=== PATIENT | male | born 1945 | race Caucasian/White ===

== ENCOUNTER 2024-03-08 23:22 | Inpatient (IN) | payer MEDICARE, OTHER ==
[~2024-03-08] VITALS: Ht 182.9 cm; Wt 73.9 kg
[2024-03-09] MEDS ORDERED: ACETAMINOPHEN 325 MG TABLET PO PRN
[2024-03-09] MEDS: BLOOD SUGAR DIAGNOSTIC 1 EACH STRIP VI ONE
[2024-03-09] MEDS ORDERED: MAGNESIUM HYDROXIDE 30 ML LIQUID UDC PO PRN
[2024-03-09] MEDS ORDERED: MAG HYDROX/AL HYDROX/SIMETH 30 ML LIQUID UDC PO PRN
[2024-03-09] MEDS ORDERED: METF-440 PO (00:29)
[2024-03-09] MEDS ORDERED: FINA5TAB11 PO (00:34)
[2024-03-09] MEDS ORDERED: ICOS1CAP PO (00:34)
[2024-03-09] MEDS ORDERED: DEXL60CA3 PO (00:34)
[2024-03-09] MEDS ORDERED: TAMS-3 PO (00:34)
[2024-03-09] MEDS ORDERED: QUET50TA PO (00:34)
[2024-03-09] MEDS ORDERED: CELE200C PO (00:34)
[2024-03-09] MEDS ORDERED: PITA2TAB PO (00:35)
[2024-03-09 00:52] VITALS: BP 138/81; TEMP 97.1; O2SAT 96
[2024-03-09 00:53] VITALS: BP 138/81; TEMP 97.1; O2SAT 76
[2024-03-09 07:46] LABS: ALANINE AMINOTRANSFERASE 9 U/L (16-63); ALBUMIN 3.7 g/dL (3.4-5.0); ALKALINE PHOSPHATASE 85 U/L (50-136); ASPARTATE AMINOTRANSFERASE 13 U/L (15-37); BILIRUBIN,TOTAL 0.9 mg/dL (0.2-1.0); CALCIUM 9.6 mg/dL (8.5-10.1); CARBON DIOXIDE 31 mmol/L (21-32); CHLORIDE 109 mmol/L (98-107); CREATININE 0.9 mg/dL (0.6-1.3); GLUCOSE 164 mg/dL (74-106); POTASSIUM 3.8 mmol/L (3.5-5.1); SODIUM SERUM 146 mmol/L (136-145); TOTAL PROTEIN, SERUM 7.2 g/dL (6.4-8.2); UREA NITROGEN, BLOOD 25 mg/dL (7-18)
[2024-03-09 08:25] VITALS: BP 104/51; TEMP 98; O2SAT 98
[2024-03-09] MEDS: DIVALPROEX SPRINKLE 125 MG CAP.SPRINK PO SCH (10:30)
[2024-03-09] MEDS ORDERED: CELECOXIB 200 MG CAPSULE PO PRN (12:00)
[2024-03-09 12:02] LABS: THYROID STIMULATING HORMONE 2.674 mIU/mL (0.358-3.740)
[2024-03-09] MEDS ORDERED: PANTOPRAZOLE SODIUM 40 MG TABLET.DR PO PRN (14:15)
[2024-03-09 15:13] VITALS: BP 110/70; TEMP 98; O2SAT 98
[2024-03-09] MEDS: METFORMIN HCL 500 MG TABLET PO SCH (17:36)
[2024-03-09 20:00] VITALS: BP 113/74; TEMP 98.1; O2SAT 97
[2024-03-09] MEDS: TAMSULOSIN HCL 0.4 MG CAP.SR.24H PO SCH (20:34)
[2024-03-09] MEDS: QUETIAPINE FUMARATE 100 MG TABLET PO SCH (20:34)
[2024-03-09] MEDS ORDERED: PITAVASTATIN CALCIUM 2 MG PO SCH (21:00)
[2024-03-10 07:52] VITALS: BP 90/48; TEMP 98; O2SAT 98
[2024-03-10] MEDS ORDERED: Medication Not On Formulary EA (Dexlansoprazole (Dexilant) 1 CAP) PO SCH (09:00)
[2024-03-10] MEDS ORDERED: ICOSAPENT ETHYL 1 GM PO SCH (09:00)
[2024-03-10] MEDS: FINASTERIDE 5 MG TABLET PO SCH (10:35)
[2024-03-10 15:33] VITALS: BP 95/55; TEMP 98; O2SAT 98
[2024-03-10 19:53] VITALS: BP 90/54; TEMP 98; O2SAT 94
[2024-03-10] MEDS: ZOLPIDEM 5 MG TABLET PO PRN (21:31)
[2024-03-10] MEDS: LORAZEPAM 1 MG TABLET PO PRN (21:56)
[2024-03-11 08:45] VITALS: BP 114/67; TEMP 97.8; O2SAT 95
== END 2024-03-11 09:45 | disposition left against medical advice (07) | DRG 885 ==
LOC: GPS 23:22
PROVIDERS: ADMIT Psychiatry & Neurology Psychiatry; ATTEND Nurse Practitioner Acute Care
DX: F29 Unspecified psychosis not due to a substance or known physiological condition (principal); F02.83 Dementia in other diseases classified elsewhere, unspecified severity, with mood disturbance; F02.818 Dementia in other diseases classified elsewhere, unspecified severity, with other behavioral disturbance; F02.82 Dementia in other diseases classified elsewhere, unspecified severity, with psychotic disturbance; N40.0 Benign prostatic hyperplasia without lower urinary tract symptoms; M15.9 Polyosteoarthritis, unspecified; E11.9 Type 2 diabetes mellitus without complications; Z79.84 Long term (current) use of oral hypoglycemic drugs; Z79.899 Other long term (current) drug therapy; G31.83 Neurocognitive disorder with Lewy bodies; R79.89 Other specified abnormal findings of blood chemistry; R26.89 Other abnormalities of gait and mobility; Z53.29 Procedure and treatment not carried out because of patient's decision for other reasons
CPT/HCPCS: 36415; 70450; 80164; 83921; 84443